=== PATIENT | male | born 1975 | race Caucasian/White ===

== ENCOUNTER 2023-09-19 17:30 | Emergency (ER) | payer OTHER ==
[~2023-09-19] VITALS: Ht 180.3 cm; Wt 73.0 kg
[2023-09-19 17:43] VITALS: BP 110/57; PULSE 108; RESP 16; TEMP 97.8; O2SAT 99
[2023-09-19] MEDS: LIDOCAINE HCL 1% 20ML VIAL INFIL ONE (20:22)
== END 2023-09-20 01:46 ==
LOC: ER 17:30
DX: S06.0X0A Concussion without loss of consciousness, initial encounter (principal); S01.511A Laceration without foreign body of lip, initial encounter; Y08.89XA Assault by other specified means, initial encounter; Y93.89 Activity, other specified; Y92.89 Other specified places as the place of occurrence of the external cause; Y99.8 Other external cause status
CPT/HCPCS: 99285; 70450; 70486; 12011; J3490